=== PATIENT | female | born 1965 | race Caucasian/White ===

== ENCOUNTER → 2017-07-31 | Outpatient (CLI) | payer OTHER ==
[~2017-07-31] MED LIST: ATV5 PO; CZR50 PO
[2017-07-31 18:38] LABS: ALT/SGPT 21 U/L (12-78); AST/SGOT 14 U/L (15-37); BLOOD UREA NITROGEN 12 mg/dl (7-18); BUN/CREATININE RATIO 15.1 (10-20); CALCIUM 9.1 mg/dl (8.5-10.1); CARBON DIOXIDE 25 mmol/L (21-32); CHLORIDE 109 mmol/L (98-107); CREATININE 0.77 mg/dl (0.60-1.20); GLUCOSE 83 mg/dl (70-99); POTASSIUM 4.6 mmol/L (3.5-5.1); SODIUM 141 mmol/L (136-145)
[2017-07-31 18:42] LABS: ALKALINE PHOSPHATASE 93 U/L (45-117); CHOLESTEROL 195 mg/dl (0-200); CHOLESTEROL/HDL RATIO 4.8; HDL CHOLESTEROL 41 mg/dl; LDL CHOLESTEROL CALCULATED 75 mg/dl; TRIGLYCERIDES 393 mg/dl (0-150); VERY LOW DENSITY LIPOPROT CALC 79 mg/dl
== END | disposition home or self-care (01) ==
LOC: C.LABSPEC 17:44
PROVIDERS: ATTEND Family Medicine
DX: Z00.00 Encounter for general adult medical examination without abnormal findings (principal)

== ENCOUNTER 2022-11-24 21:29 | Inpatient (IN) ==
[2022-11-24] MEDS ORDERED: ONDANSETRON INJ 2 MG/ML 2 ML VIAL IV STA (21:35)
[2022-11-24 22:18] LABS: Basophils # (auto) 0.05 K/uL (0-0.2); Basophils % (auto) 0.4 %; Eosinophils % (auto) 1.6 %; Hemoglobin 14.6 g/dl (12.0-16.0); Immature Granulocytes # (auto) 0.07 K/uL (0.01-0.20); Immature Granulocytes % (auto) 0.5 %; Lymphocytes # (auto) 1.85 K/uL (1.2-3.4); Lymphocytes % (auto) 14.4 %; Mean Corpuscular Hemoglobin 28.3 pg (25.0-34.0); Mean Corpuscular Hgb Conc 32.4 g/dL (32.0-36.0); Mean Corpuscular Volume 87.2 fL (80.0-100.0); Mean Platelet Volume 10.6 fL (9.4-12.4); Monocytes # (auto) 0.79 K/uL (0.11-0.59); Monocytes % (auto) 6.2 %; Neutrophils # (auto) 9.87 K/uL (1.40-6.50); Neutrophils % (auto) 76.9 %; Platelet Count 311 K/uL (130-400); RDW Coefficient of Variation 15.7 % (11.5-14.5); RDW Standard Deviation 49.4 fL (36.4-46.3); Red Blood Count 5.16 M/uL (4.20-5.40); White Blood Count 12.83 K/ul (4.8-10.8)
[2022-11-24] MEDS ORDERED: SODIUM CHLORIDE 0.9% 1000ML 1,000 ML IV ONE (22:36)
--- NOTE | 2022-11-24 22:41 | Emergency Department Note ---
Impression & Plan SBO (small bowel obstruction), Vomiting, Abdominal pain ED Provider Note NAME: DIANE MELARA AGE: 57 SEX: F : 1965 ARRIVES VIA: Walk-In INFORMANT: Patient, ED PROVIDER(S): Shyam Gutiérrez DO CHIEF COMPLAINT: Vomiting HPI: The patient is a 57-year-old female whose had multiple abdominal surgeries in the past who presented to the emergency department for an evaluation of abdominal pain and vomiting. The patient denies having any black or bloody bowel moods. She is had no fever. She has noticed abdominal distention and pain throughout the entire day. She states that she had a similar episode in the past which turned out to be a bowel obstruction. At that time she had an NG tube placed and was able to be treated medically. ROS: See above HPI for pertinent positives & negatives. A total of 10 systems reviewed and were otherwise negative. PAST MEDICAL HISTORY: See Below PAST SURGICAL HISTORY: See Below FAMILY HISTORY: See Below SOCIAL HISTORY: See Below HOME MEDICATIONS: See Below ALLERGIES: See Below VITALS: See Below PHYSICAL EXAMINATION: GENERAL: The patient is awake and alert. She appears to be somewhat uncomfortable. EYES: The conjunctivae are clear. The pupils are round and reactive. EARS, NOSE, MOUTH AND THROAT: The nose is without any evidence of any deformity. NECK: The neck is nontender and supple. RESPIRATORY: Normal respiratory effort is noted there is no evidence of wheezing rhonchi or rales CARDIOVASCULAR: Regular rate and rhythm noted there no murmurs rubs or gallops normal S1 normal S2. GASTROINTESTINAL: The abdomen is distended. There is diffuse tenderness to palpation but no guarding rigidity. MUSCULOSKELETAL/EXTREMITIES: There is no evidence of gross deformity full range of motion is noted in the hips and shoulders. SKIN: There is no significant pedal edema. NEUROLOGIC: Patient is awake alert and oriented x3. MEDICAL DECISION MAKING: The patient is a 57-year-old female who presented to the emergency department for an evaluation of abdominal pain. The patient noted abdominal pain abdominal distention and vomiting. She has a history of bowel obstruction from previous surgeries in the past. In the past she was able to manage her bowel obstruction with just NG tube and n.p.o. status. The patient was treated with IV fluids and IV pain medication. She was also treated with IV antibiotics. NG tube was ordered. I discussed the patient's laboratory and radiographic studies with her. [facility] agreed to evaluate the patient in the emergency department for further management and disposition. Triage Nursing notes reviewed. Prior medical records reviewed Vital Signs: reviewed and remarkable for elevated blood pressure. Differential diagnosis: Gastroenteritis, food borne illness, infections, appendicitis, diverticulitis, inflammatory bowel disease, obstruction, GI bleed, biliary pathology, volvulus, as well as other pathologies. ER treatment provided: See below Diagnostics interpreted by me: ECG: none Cardiac Monitoring: An order was placed for continuous cardiac monitoring. The monitor shows a rate of 81 bpm with sinus rhythm. Laboratory studies: As stated above and show below. Imaging studies: See below. Radiographic imaging was reviewed by myself Consultation(s): The case is discussed with Dr. Moore who [facility] Past [facility]/Surg History Medical History Bowel obstruction Social History Smoking Status: Never smoker Feels Safe at Home: Yes Allergies Allergies Allergy/AdvReac Type Severity Reaction Status Date / Time aspirin Allergy Intermediate HIVES Verified 11/27/09 02:58 Home Meds Home Medications Medication Instructions Recorded Confirmed Lorazepam (Ativan *) 0.5 mg PO QAM #0 tabs 03/13/12 Losartan Potassium (Cozaar *) 50 mg PO DAILY #0 tabs 03/13/12 Results & Data (ED) Vital Signs Vital Signs - 24 hr 11/24/22 21:32 Temperature 36.2 C L Temperature Source Temporal Artery Scan Pulse Rate 81 Respiratory Rate 18 Respiratory Effort / Characteristics Non-Labored Respiratory Depth Normal Blood Pressure 194/77 H Blood Pressure Mean 116 Pulse Oximetry 96 Oxygen Delivery Method Room Air Sepsis Recent Fever Within 48 Hours No Sepsis New/Unexplained Change in Mental Status No Sepsis Action Taken by Nursing No Action Required Home Medications Current Medication List: was personally reviewed by me Laboratory Data Attestation: I reviewed the patient's lab results. 11/24/22 21:45 11/24/22 21:45 Lab Results 11/24/22 11/24/22 Range/Units 21:45 21:45 WBC 12.83 H (4.8-10.8) K/ul RBC 5.16 (4.20-5.40) M/uL Hgb 14.6 (12.0-16.0) g/dl Hct 45.0 (37.0-47.0) % MCV 87.2 (80.0-100.0) fL MCH 28.3 (25.0-34.0) pg MCHC 32.4 (32.0-36.0) g/dL RDW Std Deviation 49.4 H (36.4-46.3) fL RDW Coeff of Brigitte 15.7 H (11.5-14.5) % Plt Count 311 (130-400) K/uL MPV 10.6 (9.4-12.4) fL Immature Gran % (Auto) 0.5 % Neut % (Auto) 76.9 % Lymph % (Auto) 14.4 % [place] % (Auto) 6.2 % Eos % (Auto) 1.6 % Baso % (Auto) 0.4 % Neut # (Auto) 9.87 H (1.40-6.50) K/uL Lymph # (Auto) 1.85 (1.2-3.4) K/uL [place] # (Auto) 0.79 H (0.11-0.59) K/uL Eos # (Auto) 0.20 (0-0.50) K/uL Baso # (Auto) 0.05 (0-0.2) K/uL Immature Gran # (Auto) 0.07 (0.01-0.20) K/uL Sodium 139 (136-145) mmol/L Potassium 4.4 (3.5-5.1) mmol/L Chloride 105 (98-107) mmol/L Carbon Dioxide 24 (21-32) mmol/L Anion Gap 10 (3-11) BUN 15 (6-23) mg/dl Creatinine 0.98 (0.6-1.2) mg/dl Est Cr Clr Drug Dosing 75.7 ml/min Est GFR ( Amer) 73.7 ml/min Est GFR (Non-Af Amer) 63.6 ml/min BUN/Creatinine Ratio 15.3 (10-20) Glucose 124 H (70-99(Fasting)) mg/dl Calcium 10.5 H (8.5-10.1) mg/dl Total Bilirubin 0.5 (0.2-1.0) mg/dl AST 23 (13-39) U/L ALT 23 (7-52) U/L Alkaline Phosphatase 107 H (34-104) U/L Total Protein 8.3 (6.0-8.3) gm/dl Albumin 4.5 (3.4-5.0) gm/dl Globulin 3.8 (2.5-4.0) gm/dl Albumin/Globulin Ratio 1.2 (0.9-2) Lipase 30 (11-82) U/L Administered Medications Hydromorphone HCl (Hydromorphone Inj 0.5 Mg/0.5 Ml Syr) 0.5 mg IV Q15M PRN PRN Reason: Pain Stop: 12/08/22 22:35 Last Admin: 11/24/22 22:44 Dose: 0.5 mg Documented By: Discontinued Medications Sodium Chloride (Nss 1000ml) 1,000 mls @ 999 mls/hr IV .Q1H1M ONE Stop: 11/24/22 23:36 Last Admin: 11/24/22 23:14 Dose: 999 mls/hr Documented By: Ondansetron HCl (Ondansetron Inj 2 Mg/Ml 2 Ml Vial) 4 mg IV NOW STA Stop: 11/24/22 21:36 Last Admin: 11/24/22 22:32 Dose: 4 mg Documented By: Imaging Data Radiologist's Impression: Patient: DIANE MELARA (Female) : 63 Status: ER Date: 11/24/22 23:01 Room #: History: vomitng Slices: [id number] Priors: Tech: Riki Cordero @ [phone] Exams: CT ABDOMEN & PELVIS Without Contrast Contrast: Accession Numbers: [id number] Referring Physician: SHYAM GUTIÉRREZ Preliminary Findings Only See Final Report For Complete Findings CT ABDOMEN & PELVIS Without Contrast: Small bowel obstruction with dilated loops of small bowel in the right lower quadrant with formed feces sign and transition zone best seen on best seen on sagittal series 300 image 16. Fatty infiltration of the liver. Radiologist: Thanh Pennington M.D. Study ready at 23:02 and initial results transmitted at 23:08 Discharge Plan Visit Data Chief Complaint: GI Assessment Stated Complaint: PAIN LOWER ABDOMEN,FEELS LIKE BOWEL OBSTRUCTION ED Provider: Shyam Gutiérrez Discharge Problem: SBO (small bowel obstruction), Vomiting, Abdominal pain Patient Disposition: Being Evaluated by Hospitalist Forms Stand Alone Forms: [facility] Prescriptions Prescriptions: No Action Lorazepam (Ativan *) 0.5 MG tablet 0.5 mg PO QAM Qty: 0 Losartan Potassium (Cozaar *) 50 MG tablet 50 mg PO DAILY Qty: 0 Referrals Referrals: Lv Cano, DO [Primary Care Provider] - : Vomiting Qualifiers: Vomiting type: unspecified Nausea presence: with nausea Qualified Code(s): R11.2 - Nausea with vomiting, unspecified Abdominal pain Qualifiers: Abdominal location: generalized Qualified Code(s): R10.84 - Generalized abdominal pain
[2022-11-24] MEDS: HYDROmorphone INJ 0.5 MG/0.5 ML SYR IV PRN (22:44)
[2022-11-24] MEDS ORDERED: PIPERACILLIN/TAZOBACTAM 4.5 GM/120 ML BAG IV ONE (23:27)
[2022-11-24 23:39] LABS: Albumin Globulin Ratio 1.2 (0.9-2); Albumin Level 4.5 gm/dl (3.4-5.0); BUN Creatinine Ratio 15.3 (10-20); Bilirubin,Total 0.5 mg/dl (0.2-1.0); Calcium 10.5 mg/dl (8.5-10.1); Creatinine Clr Calc Pharmacy 75.7 ml/min; Est GFR (African American) 73.7 ml/min; Est GFR (Non-African American) 63.6 ml/min; Globulin 3.8 gm/dl (2.5-4.0); Potassium 4.4 mmol/L (3.5-5.1); Total Protein 8.3 gm/dl (6.0-8.3)
[2022-11-25] MEDS: HYDROmorphone INJ 0.5 MG/0.5 ML SYR IV PRN (00:34)
[2022-11-25] MEDS ORDERED: PROMETHAZINE HCL 12.5 MG in SODIUM CHLORIDE 0.9% 50 ML IV STA (01:59)
[2022-11-25] MEDS ORDERED: PROMETHAZINE 12.5 MG/50.5 ML BAG IV STA (02:04)
[2022-11-25] MEDS ORDERED: HYDROmorphone INJ 0.5 MG/0.5 ML SYR IV PRN (02:54)
[2022-11-25] MEDS ORDERED: hydrALAZINE HCL 20 MG/ML VIAL IV PRN (02:54)
[2022-11-25] MEDS ORDERED: ONDANSETRON INJ 2 MG/ML 2 ML VIAL IV PRN (02:54)
[2022-11-25] MEDS: D5W AND 1/2NSS 1,000 ML IV SCH ×3 (03:26→19:47)
--- NOTE | 2022-11-25 05:50 | Surgery Consultation ---
Date of Consultation November 25, 2022 Assessment & Plan (1) SBO (small bowel obstruction): pt is a 57 year-old female who was admitted to hospital for SBO, IMP: SBO, Plan, no emergent surgery indication now, conservative treatment now, NPO, IV fluid, antibiotic, NG tube, control pain, repeat labs and KUB tomorrow morning, will F/U, pt agreed with the plan, I answered all questions, History of Present Illness Reason for Consultation: SBO Requesting Physician: Rafa Moore MD Attending Physician: Alden Wong MD History of Present Illness CHIEF COMPLAINT: Vomiting HPI: The patient is a 57-year-old female whose had multiple abdominal surgeries in the past who presented to the emergency department for an evaluation of abdominal pain and vomiting. The patient denies having any black or bloody bowel moods. She is had no fever. She has noticed abdominal distention and pain throughout the entire day. She states that she had a similar episode in the past which turned out to be a bowel obstruction. At that time she had an NG tube placed and was able to be treated medically. I ( Era Walter MD ) was asked for consult SBO, I reviewed pt's H/P, labs and Ct scan with pt, pt feels better, no significant abdominal pain now, NG tube in, pt said she had SBO 5 months ago, pt had conservatie treatment for 3-4 days, then the SBO resolved, ROS: See above HPI for pertinent positives & negatives. A total of 10 systems reviewed and were otherwise negative. Allergies Allergy/AdvReac Type Severity Reaction Status Date / Time aspirin Allergy Intermediate HIVES Verified 11/27/09 02:58 dicyclomine [From Bentyl] Allergy Unknown Verified 11/25/22 05:18 Home Medications Medication Instructions Recorded Confirmed Type atorvastatin 20 mg tablet 20 mg PO DAILY 11/25/22 11/25/22 History citalopram 20 mg tablet 30 mg PO DAILY 11/25/22 11/25/22 History estradiol 0.01% (0.1 mg/gram) 1 applic vaginal .EVERY OTHER NIGHT 11/25/22 11/25/22 History vaginal cream lorazepam 0.5 mg tablet 0.5 mg PO TID PRN Anxiety 11/25/22 11/25/22 History losartan 100 mg tablet 50 mg PO DAILY 11/25/22 11/25/22 History prochlorperazine maleate 5 mg 5 mg PO Q6 PRN Nausea 11/25/22 11/25/22 History tablet Patient History Medical History Bowel obstruction Social History Smoking Status: Never smoker Hx Alcohol Use: No Hx Substance Use: No Preferred Language: Italian Communication Ability: Effective Primer Assembler Required: No Beliefs That Will Affect Care: None Current Living Situation: Spouse Feels Safe at Home: Yes Safety Concerns: Feels Safe At This Time Assistive Devices: Glasses Review of Systems Constitutional: obesity, no distress, Eyes: as per Subjective / HPI Respiratory: as per Subjective / HPI Cardiovascular: as per Subjective / HPI Gastrointestinal: , abdominal hernia repair with mesh Genitourinary: as per Subjective / HPI Musculoskeletal: as per Subjective / HPI Neurologic: as per Subjective / HPI Psychiatric: as per Subjective / HPI Endocrine: as per Subjective / HPI Hematologic / Lymphatic: as per Subjective / HPI Physical Exam Constitutional: WD/WN, vitals as above no distress Eyes: PERRL, conjunctivae normal, anicteric sclerae Neck: trachea midline, no thyromegaly Respiratory: normal respiratory effort, lungs clear to auscultation Cardiovascular: RRR, no murmur, no edema Gastrointestinal (Abdomen): soft, lower middle line scar, mild tenderness at periumbilical area, no rebound pain, no distend, BS +, Musculoskeletal: no cyanosis or clubbing, extremities motor strength 5/5 Neurologic: patellar DTR's 2+ bilat, sensation intact Psychiatric: A+Ox3, euthymic affect Results & Data ([facility]) Vital Signs (Past 12 Hours) Vital Signs Temp Pulse Pulse Resp BP BP Pulse Ox 11/25/22 03:00 11/25/22 03:00 37 C 86 20 166/98 H 94 11/25/22 02:36 11/25/22 01:30 78 18 170/79 H 92 11/24/22 21:32 36.2 C L 81 18 194/77 H 96 O2 Del Method 11/25/22 03:00 Room Air 11/25/22 03:00 Room Air 11/25/22 02:36 Room Air 11/25/22 01:30 11/24/22 21:32 Room Air Laboratory Results Abnormal lab results 11/24/22 11/24/22 Range/Units 21:45 21:45 WBC 12.83 H (4.8-10.8) K/ul RDW Std Deviation 49.4 H (36.4-46.3) fL RDW Coeff of Brigitte 15.7 H (11.5-14.5) % Neut # (Auto) 9.87 H (1.40-6.50) K/uL [place] # (Auto) 0.79 H (0.11-0.59) K/uL Glucose 124 H (70-99(Fasting)) mg/dl Calcium 10.5 H (8.5-10.1) mg/dl Alkaline Phosphatase 107 H (34-104) U/L Diagnostic Findings CT scan - SBO,
--- NOTE | 2022-11-25 06:02 | History and Physical Report ---
DATE OF ADMISSION: 11/25/2022 CHIEF COMPLAINT: Abdominal pain. HISTORY OF PRESENT ILLNESS: A 57-year-old female with past medical history significant for hypertension, morbid obesity, lichen sclerosus, history of incisional hernia, presents with abdominal pain. The patient started abdominal pain in the morning, but in the evening it got worse with nausea, no vomiting. She had small bowel movement today. It was normal. Normal bladder movements. No fever, no chills, no chest pain. When the pain is severe, she is getting short of breath. No headache, no blurred visions, no earache, no runny nose, no sore throat, no difficulty swallowing. Currently, resting comfortably and hemodynamically stable. The patient has bowel obstruction in last May. This is second episode. The patient says she has multiple abdominal surgeries. ALLERGIES: ASPIRIN, BENTYL. PAST MEDICAL HISTORY: As mentioned above. PAST SURGICAL HISTORY: x2, colonoscopy, EGD, laparoscopic repair of inguinal hernia, total abdominal hysterectomy. MEDICATIONS: The patient is on atorvastatin 20 mg p.o. daily, citalopram 30 mg p.o. daily, estradiol apply vaginally every other night, lorazepam 0.5 mg p.o. t.i.d. p.r.n., losartan 50 mg p.o. daily, prochlorperazine 5 mg p.o. q. 6 hours p.r.n. FAMILY HISTORY: Significant for brother had cancer. Father had heart disorder, hypertension. Mother had heart disorder. SOCIAL HISTORY: , no smoking. Alcohol occasional. No drug use. REVIEW OF SYSTEMS: As per HPI. Rest of the review of systems is negative. PHYSICAL EXAMINATION: GENERAL: The patient is morbidly obese, not in acute distress. VITAL SIGNS: Temperature 36.2, pulse 81, respiratory rate 18, blood pressure 194/77, oxygen 96% on room air. HEENT: Pupils equal, round and reactive to light. Oral mucosa moist. NECK: No JVD or neck masses. CARDIOVASCULAR: S1 and S2 heard. Regular rate and rhythm. No murmur, no gallop. RESPIRATORY SYSTEM: Normal AP diameter. No accessory muscle use. No wheezing, crackles. ABDOMEN: Soft, bowel sounds absent. No distention. Diffuse mild tenderness. Very mild guarding. No rigidity. CENTRAL NERVOUS SYSTEM: Cranial nerves II-XII grossly intact, nonfocal. EXTREMITIES: No edema, no erythema. LABORATORY DATA: WBC 12.8, hemoglobin 14.6, hematocrit 45, platelets 311. Sodium 139, potassium 4.4, chloride 105, bicarbonate 24, BUN 15, creatinine 0.9, serum glucose 124, calcium 10.5, total bilirubin 0.5, AST 23, ALT 23, alkaline phosphatase 107. Lipase 30. SARS-CoV-2 rapid test negative. IMAGING DATA: CT of abdomen and pelvis preliminary report showed small bowel obstruction. ASSESSMENT AND PLAN: This is a 57-year-old female presents with small bowel obstruction. 1. Abdominal pain, small bowel obstruction. History of abdominal obstruction in the past, history of multiple abdominal surgeries. We will treat conservatively with n.p.o., NG tube, IV fluids, IV antiemetics and IV pain medication p.r.n. and consult GI surgery in the a.m. 2. History of hypertension: Currently n.p.o. We will restart losartan as soon as possible. Currently IV hydralazine p.r.n. 3. History of hyperlipidemia, hold statin now. 4. History of depression. We will hold citalopram now. 5. Deep venous thrombosis prophylaxis: Sequential compression devices for now. DISPOSITION: Closely monitor in the medical floor. PT/OT prior to discharge. Social service to help with discharge planning. Level 1 full code. Job ID: [id number] MTDD
[2022-11-25] MEDS: ceFAZolin 1000MG 1,000 MG/7.5 ML SYR IV SCH ×3 (07:01→22:09)
[2022-11-25 07:33] LABS: Basophils # (auto) 0.02 K/uL (0-0.2); Basophils % (auto) 0.1 %; Eosinophils # (auto) 0.03 K/uL (0-0.50); Eosinophils % (auto) 0.2 %; Hematocrit (blood only) 43.8 % (37.0-47.0); Immature Granulocytes # (auto) 0.05 K/uL (0.01-0.20); Immature Granulocytes % (auto) 0.4 %; Lymphocytes # (auto) 0.65 K/uL (1.2-3.4); Lymphocytes % (auto) 4.6 %; Mean Corpuscular Hemoglobin 28.1 pg (25.0-34.0); Mean Platelet Volume 10.2 fL (9.4-12.4); Monocytes # (auto) 1.04 K/uL (0.11-0.59); Monocytes % (auto) 7.3 %; Neutrophils # (auto) 12.44 K/uL (1.40-6.50); Neutrophils % (auto) 87.4 %; Platelet Count 283 K/uL (130-400); RDW Coefficient of Variation 15.7 % (11.5-14.5); RDW Standard Deviation 50.4 fL (36.4-46.3); Red Blood Count 4.98 M/uL (4.20-5.40); White Blood Count 14.23 K/ul (4.8-10.8)
--- NOTE | 2022-11-25 08:01 | XRay Report ---
XR chest 1V portable HISTORY: NG tube placement COMPARISON: None. FINDINGS: The nasogastric tube is curled within the expected location of the mid to distal stomach. M ildly dilated gas-filled loops of small bowel are partially visualized within the right lower quadran t consistent with a small bowel obstruction. IMPRESSION: 1. The nasogastric tube is curled within the expected location of the mid to distal stomach. 2. Persistent small bowel obstruction pattern. ACT 112: Negative or not required by law. Electronically signed by: Shan Kelly M.D. 11/25/2022 7:59 AM
[2022-11-25 08:10] LABS: Appearance Urine Clear (Clear); Bacteria Urine Automated Negative (Negative); Bilirubin Urine Negative (Negative); Blood Urine Negative (Negative); Color Urine Yellow; Epithelial Cell Urine Auto >30 /lpf (0-5); Glucose Urine UA Negative (Negative); Ketones Urine Negative (Negative); Leukocyte Esterase Urine Trace (Negative); Nitrite Urine Negative (Negative); Protein Urine Negative (Negative); RBC Urine Automated 0-4 /hpf (0-4); Specific Gravity Urine 1.025 (1.000-1.030); Urobilinogen Urine Negative (Negative)
[2022-11-25 08:44] LABS: BUN Creatinine Ratio 17.1 (10-20); Calcium 9.4 mg/dl (8.5-10.1); Creatinine Clr Calc Pharmacy 91.1 ml/min; Est GFR (African American) 91.4 ml/min; Est GFR (Non-African American) 78.9 ml/min; Magnesium 2.1 mg/dl (1.7-2.4); Potassium 4.5 mmol/L (3.5-5.1)
--- NOTE | 2022-11-25 08:45 | CT Scan Report ---
CT OF THE ABDOMEN AND PELVIS WITHOUT CONTRAST CLINICAL HISTORY: Vomiting. COMPARISON STUDY: Abdominal ultrasound January 17, 2014. TECHNIQUE: Axial images of the abdomen and pelvis were obtained without IV contrast. Images were revi ewed in the axial, sagittal, and coronal planes. Automated exposure control was utilized for the bess dy. A dose lowering technique was utilized adhering to the principles of ALARA. FINDINGS: Lung bases are unremarkable. No pneumatosis, free air or portal venous gas is present. Eval uation of the abdomen and pelvis is suboptimal on this unenhanced exam. There is hepatic steatosis. T he spleen, adrenal glands, kidneys and pancreas are unremarkable. There is no biliary or pancreatic d uctal dilatation. There is no hydronephrosis. Multiple loops of mildly dilated fluid-filled distal il eum are noted. Transition point with small bowel feces sign is noted. The transition point is noted o n axial image 251 of 461. The terminal ileum is decompressed. The appendix is partially obscured but likely normal in shown on axial image 215 of 461. The etiology for the small bowel obstruction is not clear on this exam. There is a small amount of associated ascites and mild mesenteric infiltration. Sigmoid diverticulosis is present. There is no evidence for acute diverticulitis. There is no lymphad enopathy. IMPRESSION: 1. Findings consistent with a moderate grade small bowel obstruction within the distal ileum, as desc ribed above. The etiology for the obstruction is not clear on this exam. Small amount of associated a scites and mesenteric infiltration. Appendix partially obscured but likely normal. 2. Hepatic steatosis. 3. Sigmoid diverticulosis. No evidence for acute diverticulitis. ACT 112: Negative or not required by law. Electronically signed by: Enio Marcelino M.D. 11/25/2022 8:44 AM
--- NOTE | 2022-11-25 12:31 | Surgery Progress Note ---
Date of Service November 25, 2022 Assessment & Plan (1) SBO (small bowel obstruction): Plan: History of multiple abdominal surgeries history of SBO in may treated conservatively Passing flatus pain better, no n,v 100 cc NGT output Plan: Continue conseravative management NPO for bowel rest, NGT to LIS, pain management as needed encourage ambulation [facility] covering this weekend Admission and Anticipated Discharge Date Admission Date: November 25, 2022 Subjective feeling better than prior to presentation, abdominal pain still present but not as severe passed small amount of gas this morning no n/v since admission does not feel as bloated Physical Exam Constitutional: WD/WN, vitals as above + morbidly obese, cooperative and comfortable; no acute distress and not ill appearing Respiratory: normal respiratory effort; no respiratory distress and no labored breathing Gastrointestinal (Abdomen): Inspection/Auscultation: abdomen normal to inspection and + hypoactive bowel sounds; abdomen not distended and + abnormal bowel sounds Percussion/Palpation: + abdomen tender (LUQ) and abdomen soft; no guarding and abdomen not rigid NGT with clear/mucous output Skin: no rashes, warm and dry Psychiatric: A+Ox3, euthymic affect Results & Data ([facility]) Vital Signs (Past 12 Hours) Vital Signs Temp Pulse Resp BP Pulse Ox O2 Del Method 11/25/22 08:00 37.0 C 110 H 16 124/76 94 Room Air 11/25/22 03:00 Room Air 11/25/22 03:00 37 C 86 20 166/98 H 94 Room Air 11/25/22 02:36 Room Air 11/25/22 01:30 78 18 170/79 H 92
[2022-11-25] MEDS ORDERED: ACETAMINOPHEN 1,000 MG/100 ML VIAL IV PRN (13:01)
--- NOTE | 2022-11-25 13:03 | Hospitalist Progress Note ---
Date of Service November 25, 2022 Assessment & Plan (1) SBO (small bowel obstruction): Plan: History of multiple abdominal surgeries in the past. Presented with nausea vomiting. Surgery on board Conservative care with NG tube, IV fluids. IV cefazolin added by surgery. IV Tylenol as needed along with IV Dilaudid. (2) Hypertension: Plan: Home losartan on hold; Monitor for now (3) Hyperlipidemia: Plan: Lipitor on hold while NG tube is in place. Plan Full code DVT SCDs Admission and Anticipated Discharge Date Admission Date: November 25, 2022 Subjective Patient seen and examined at bedside. She is comfortably sitting on the bed; not in any distress. NG tube in place; no nausea or vomiting. Review of Systems Review of Systems: All systems reviewed & are unremarkable except as noted in Subjective Physical Exam Physical Exam: Constitutional: WD/WN, vitals as above, NAD, sitting up in bed, pleasant, conversing easily Respiratory: normal respiratory effort, lungs clear to auscultation, no wheeze, rales, rhonchi. Normal insp/exp effort, no accessory muscle use Cardiovascular: RRR, no murmur, no edema Vessels: no JVD or carotid bruit Chest: normal inspection of chest Abdomen: Soft, slightly distended. No tenderness appreciated. Musculoskeletal: no cyanosis or clubbing, extremities motor strength 5/5 Skin: no rashes, warm and dry normal turgor Neurologic: PERRL, EOMI, accommodation nl, no face palsy, no dysarthria CN's II- XI intact bilaterally and moves all extremities Psychiatric: A+Ox3, euthymic affect Lymphatic: no cervical or axillary lymphadenopathy : deferred Results & Data Results & Data ([facility]) Vital Signs (Past 12 Hours) Vital Signs Temp Pulse Resp BP Pulse Ox O2 Del Method 11/25/22 08:00 37.0 C 110 H 16 124/76 94 Room Air 11/25/22 03:00 Room Air 11/25/22 03:00 37 C 86 20 166/98 H 94 Room Air 11/25/22 02:36 Room Air 11/25/22 01:30 78 18 170/79 H 92 Laboratory Results Laboratory Results WBC 14.23 K/ul (4.8-10.8) H 11/25/22 07:03 RBC 4.98 M/uL (4.20-5.40) 11/25/22 07:03 Hgb 14.0 g/dl (12.0-16.0) 11/25/22 07:03 Hct 43.8 % (37.0-47.0) 11/25/22 07:03 MCV 88.0 fL (80.0-100.0) 11/25/22 07:03 MCH 28.1 pg (25.0-34.0) 11/25/22 07:03 MCHC 32.0 g/dL (32.0-36.0) 11/25/22 07:03 RDW Std Deviation 50.4 fL (36.4-46.3) H 11/25/22 07:03 RDW Coeff of Brigitte 15.7 % (11.5-14.5) H 11/25/22 07:03 Plt Count 283 K/uL (130-400) 11/25/22 07:03 MPV 10.2 fL (9.4-12.4) 11/25/22 07:03 Immature Gran % (Auto) 0.4 % 11/25/22 07:03 Neut % (Auto) 87.4 % 11/25/22 07:03 Lymph % (Auto) 4.6 % 11/25/22 07:03 [place] % (Auto) 7.3 % 11/25/22 07:03 Eos % (Auto) 0.2 % 11/25/22 07:03 Baso % (Auto) 0.1 % 11/25/22 07:03 Neut # (Auto) 12.44 K/uL (1.40-6.50) H 11/25/22 07:03 Lymph # (Auto) 0.65 K/uL (1.2-3.4) L 11/25/22 07:03 [place] # (Auto) 1.04 K/uL (0.11-0.59) H 11/25/22 07:03 Eos # (Auto) 0.03 K/uL (0-0.50) 11/25/22 07:03 Baso # (Auto) 0.02 K/uL (0-0.2) 11/25/22 07:03 Immature Gran # (Auto) 0.05 K/uL (0.01-0.20) 11/25/22 07:03 Sodium 139 mmol/L (136-145) 11/25/22 07:03 Potassium 4.5 mmol/L (3.5-5.1) 11/25/22 07:03 Chloride 108 mmol/L (98-107) H 11/25/22 07:03 Carbon Dioxide 21 mmol/L (21-32) 11/25/22 07:03 Anion Gap 10 (3-11) 11/25/22 07:03 BUN 14 mg/dl (6-23) 11/25/22 07:03 Creatinine 0.82 mg/dl (0.6-1.2) 11/25/22 07:03 Est Cr Clr Drug Dosing 91.1 ml/min 11/25/22 07:03 Est GFR ( Amer) 91.4 ml/min 11/25/22 07:03 Est GFR (Non-Af Amer) 78.9 ml/min 11/25/22 07:03 BUN/Creatinine Ratio 17.1 (10-20) 11/25/22 07:03 Glucose 136 mg/dl (70-99(Fasting)) H 11/25/22 07:03 Calcium 9.4 mg/dl (8.5-10.1) 11/25/22 07:03 Magnesium 2.1 mg/dl (1.7-2.4) 11/25/22 07:03 Total Bilirubin 0.5 mg/dl (0.2-1.0) 11/24/22 21:45 AST 23 U/L (13-39) 11/24/22 21:45 ALT 23 U/L (7-52) 11/24/22 21:45 Alkaline Phosphatase 107 U/L (34-104) H 11/24/22 21:45 Total Protein 8.3 gm/dl (6.0-8.3) 11/24/22 21:45 Albumin 4.5 gm/dl (3.4-5.0) 11/24/22 21:45 Globulin 3.8 gm/dl (2.5-4.0) 11/24/22 21:45 Albumin/Globulin Ratio 1.2 (0.9-2) 11/24/22 21:45 Lipase 30 U/L (11-82) 11/24/22 21:45 Urine Color Yellow 11/25/22 07:16 Urine Appearance Clear (Clear) 11/25/22 07:16 Urine pH 5.0 (4.5-7.5) 11/25/22 07:16 Ur Specific [place] 1.025 (1.000-1.030) 11/25/22 07:16 Urine Protein Negative (Negative) 11/25/22 07:16 Urine Glucose (UA) Negative (Negative) 11/25/22 07:16 Urine Ketones Negative (Negative) 11/25/22 07:16 Urine Blood Negative (Negative) 11/25/22 07:16 Urine Nitrite Negative (Negative) 11/25/22 07:16 Urine Bilirubin Negative (Negative) 11/25/22 07:16 Urine Urobilinogen Negative (Negative) 11/25/22 07:16 Ur Leukocyte Esterase Trace (Negative) H 11/25/22 07:16 Urine WBC (Auto) 5-10 /hpf (0-5) H 11/25/22 07:16 Urine RBC (Auto) 0-4 /hpf (0-4) 11/25/22 07:16 U Hyaline Cast (Auto) 1-5 /lpf (0-5) 11/25/22 07:16 U Epithel Cells (Auto) >30 /lpf (0-5) H 11/25/22 07:16 Urine Bacteria (Auto) Negative (Negative) 11/25/22 07:16 SARS-CoV-2, RNA, NAAT NEGATIVE (NEGATIVE) 11/24/22 22:47 Impressions Abdomen/Pelvis CT 11/24/22 22:32 CT OF THE ABDOMEN AND PELVIS WITHOUT CONTRAST CLINICAL HISTORY: Vomiting. COMPARISON STUDY: Abdominal ultrasound January 17, 2014. TECHNIQUE: Axial images of the abdomen and pelvis were obtained without IV contrast. Images were reviewed in the axial, sagittal, and coronal planes. Automated exposure control was utilized for the study. A dose lowering technique was utilized adhering to the principles of ALARA. FINDINGS: Lung bases are unremarkable. No pneumatosis, free air or portal venous gas is present. Evaluation of the abdomen and pelvis is suboptimal on this unenhanced exam. There is hepatic steatosis. The spleen, adrenal glands, kidneys and pancreas are unremarkable. There is no biliary or pancreatic ductal dilatation. There is no hydronephrosis. Multiple loops of mildly dilated fluid- filled distal ileum are noted. Transition point with small bowel feces sign is noted. The transition point is noted on axial image 251 of 461. The terminal ileum is decompressed. The appendix is partially obscured but likely normal in shown on axial image 215 of 461. The etiology for the small bowel obstruction is not clear on this exam. There is a small amount of associated ascites and mild mesenteric infiltration. Sigmoid diverticulosis is present. There is no evidence for acute diverticulitis. There is no lymphadenopathy. IMPRESSION: 1. Findings consistent with a moderate grade small bowel obstruction within the distal ileum, as described above. The etiology for the obstruction is not clear on this exam. Small amount of associated ascites and mesenteric infiltration. Appendix partially obscured but likely normal. 2. Hepatic steatosis. 3. Sigmoid diverticulosis. No evidence for acute diverticulitis. ACT 112: Negative or not required by law. Electronically signed by: Enio Marcelino M.D. 11/25/2022 8:44 AM Chest X-Ray 11/25/22 00:47 XR chest 1V portable HISTORY: NG tube placement COMPARISON: None. FINDINGS: The nasogastric tube is curled within the expected location of the mid to distal stomach. Mildly dilated gas-filled loops of small bowel are partially visualized within the right lower quadrant consistent with a small bowel obstruction. IMPRESSION: 1. The nasogastric tube is curled within the expected location of the mid to distal stomach. 2. Persistent small bowel obstruction pattern. ACT 112: Negative or not required by law. Electronically signed by: Shan Kelly M.D. 11/25/2022 7:59 AM
--- NOTE | 2022-11-25 13:25 | XRay Report ---
KUB CLINICAL HISTORY: Small bowel obstruction. COMPARISON STUDY: CT of the abdomen and pelvis November 24, 2022. FINDINGS: Tip of nasogastric tube is within the body of the stomach. Multiple loops of mildly dilated ileum are noted. The findings represent a persistent small bowel obstruction. Small bowel dilatation is similar to prior exam. IMPRESSION: Persistent small bowel obstruction. ACT 112: Negative or not required by law. Electronically signed by: Enio Marcelino M.D. 11/25/2022 1:24 PM
--- NOTE | 2022-11-25 14:56 | XRay Report ---
XR chest 1V portable HISTORY: 57 years-old Female position of NG tube status post placement of an enteric tube COMPARISON: KUB of same day TECHNIQUE: AP view of the chest FINDINGS: Cardiac silhouette is enlarged. Enteric tube is redemonstrated with the distal tip in the expected lo cation of the mid stomach, similar to prior. Mild subsegmental bibasilar atelectasis. Persistent smal l bowel obstruction. Bones appear grossly intact. IMPRESSION: Distal tip of enteric tube projects over the mid stomach. ACT 112: Negative or not required by law. The above report was generated using voice recognition software. It may contain grammatical, syntax o r spelling errors. Electronically signed by: Omar Jaime M.D. 11/25/2022 2:55 PM
[2022-11-26] MEDS: D5W AND 1/2NSS 1,000 ML IV SCH ×2 (03:17→11:49)
[2022-11-26] MEDS: ceFAZolin 1000MG 1,000 MG/7.5 ML SYR IV SCH ×2 (05:35→15:25)
--- NOTE | 2022-11-26 06:09 | Surgery Progress Note ---
Date of Service November 26, 2022 Assessment & Plan (1) SBO (small bowel obstruction): Plan: Patient has been admitted on the hospitalist service. We recommend proceeding as follows We will consider advancing diet to clear liquids later this morning. Continue IV fluid until certain oral intake is adequate Encourage ambulation Check a.m. labs when available Admission and Anticipated Discharge Date Admission Date: November 25, 2022 Supervising Physician Co-Signing Physician Notes I personally saw and evaluated the patient with Frantz Henson PA-C and agree with the assessment and plan. 57-year-old female with small bowel obstruction, improving She is doing well without any nausea since her NG tube came out yesterday and tolerating sips and chips We will give her clear liquids today, instructed to go slow with these We will continue to follow Subjective Patient is resting comfortably in bed. She notes abdominal pain that was present at time of admission is markedly improved. She does report having flatus and a small bowel movement last evening. She denies any nausea or vomiting. She also notes that her NG tube became dislodged last evening and has not been replaced. Physical Exam Gastrointestinal (Abdomen): Abdomen is soft and nonrigid. There is no distention noted. Bowel sounds are hypoactive. There is minimal pain noted with palpation. Results & Data ([facility]) Vital Signs (Past 12 Hours) Vital Signs Temp Pulse Resp BP Pulse Ox O2 Del Method 11/25/22 21:07 36.9 C 89 20 166/76 H 96 Room Air PG Care Time/CCT Total # of Minutes Spent Total Time Spent with Patient: Total time spent is greater than 50% in coordination of care (as documented) at patient's floor/unit and/or counseling patient: Coding Level of Care Code 68416 SUB INP/OBS CARE 25MIN Diagnoses SBO (small bowel obstruction) K56.609
[2022-11-26 06:18] LABS: Basophils # (auto) 0.02 K/uL (0-0.2); Basophils % (auto) 0.3 %; Eosinophils # (auto) 0.26 K/uL (0-0.50); Eosinophils % (auto) 3.3 %; Hematocrit (blood only) 38.4 % (37.0-47.0); Hemoglobin 12.2 g/dl (12.0-16.0); Immature Granulocytes # (auto) 0.03 K/uL (0.01-0.20); Immature Granulocytes % (auto) 0.4 %; Lymphocytes # (auto) 1.71 K/uL (1.2-3.4); Lymphocytes % (auto) 21.8 %; Mean Corpuscular Hemoglobin 28.4 pg (25.0-34.0); Mean Corpuscular Hgb Conc 31.8 g/dL (32.0-36.0); Mean Corpuscular Volume 89.3 fL (80.0-100.0); Mean Platelet Volume 10.2 fL (9.4-12.4); Monocytes # (auto) 0.72 K/uL (0.11-0.59); Monocytes % (auto) 9.2 %; Neutrophils # (auto) 5.12 K/uL (1.40-6.50); Platelet Count 236 K/uL (130-400); RDW Coefficient of Variation 15.9 % (11.5-14.5); RDW Standard Deviation 52.1 fL (36.4-46.3); White Blood Count 7.86 K/ul (4.8-10.8)
[2022-11-26 06:49] LABS: Albumin Globulin Ratio 1.3 (0.9-2); Albumin Level 3.7 gm/dl (3.4-5.0); BUN Creatinine Ratio 14.3 (10-20); Bilirubin,Total 0.6 mg/dl (0.2-1.0); Creatinine Clr Calc Pharmacy 82.1 ml/min; Est GFR (African American) 80.6 ml/min; Est GFR (Non-African American) 69.5 ml/min; Globulin 2.9 gm/dl (2.5-4.0); Potassium 3.8 mmol/L (3.5-5.1); Total Protein 6.6 gm/dl (6.0-8.3)
[2022-11-26] MEDS ORDERED: ACETAMINOPHEN 325 MG TAB PO ONE (08:41)
[2022-11-26] MEDS ORDERED: LORazepam 0.5 MG TAB PO PRN (11:40)
--- NOTE | 2022-11-26 11:40 | Hospitalist Progress Note ---
Date of Service November 26, 2022 Assessment & Plan (1) SBO (small bowel obstruction): Plan: History of multiple abdominal surgeries in the past. Presented with nausea vomiting. Surgery on board NG tube taken out yesterday. Started on clear liquid diet. Advance diet as tolerated. (2) Hypertension: Plan: reume losartan (3) Hyperlipidemia: Plan: resume lipitor Plan Full code DVT SCDs Disposition- from Home. Plan to advance diet as tolerated today. If continues to tolerate diet; possible dc in am. Admission and Anticipated Discharge Date Admission Date: November 25, 2022 Subjective Patient seen and examined at bedside. Reports that her abdominal pain has improved. no longer nauseous or vomiting. Had bowel movement. Review of Systems Review of Systems: All systems reviewed & are unremarkable except as noted in Subjective Physical Exam Physical Exam: Constitutional: WD/WN, vitals as above, NAD, sitting up in bed, pleasant, conversing easily Respiratory: normal respiratory effort, lungs clear to auscultation, no wheeze, rales, rhonchi. Normal insp/exp effort, no accessory muscle use Cardiovascular: RRR, no murmur, no edema Vessels: no JVD or carotid bruit Chest: normal inspection of chest Abdomen: Soft, slightly distended. No tenderness appreciated. Musculoskeletal: no cyanosis or clubbing, extremities motor strength 5/5 Skin: no rashes, warm and dry normal turgor Neurologic: PERRL, EOMI, accommodation nl, no face palsy, no dysarthria CN's II- XI intact bilaterally and moves all extremities Psychiatric: A+Ox3, euthymic affect Lymphatic: no cervical or axillary lymphadenopathy : deferred Results & Data Results & Data ([facility]) Vital Signs (Past 12 Hours) Vital Signs Temp Pulse Resp BP Pulse Ox O2 Del Method 11/26/22 08:00 36.7 C 70 16 147/86 H 97 Room Air Laboratory Results Laboratory Results WBC 7.86 K/ul (4.8-10.8) 11/26/22 05:29 RBC 4.30 M/uL (4.20-5.40) 11/26/22 05:29 Hgb 12.2 g/dl (12.0-16.0) 11/26/22 05:29 Hct 38.4 % (37.0-47.0) 11/26/22 05:29 MCV 89.3 fL (80.0-100.0) 11/26/22 05:29 MCH 28.4 pg (25.0-34.0) 11/26/22 05: MCHC 31.8 g/dL (32.0-36.0) L 11/26/22 05:29 RDW Std Deviation 52.1 fL (36.4-46.3) H 11/26/22 05: RDW Coeff of Brigitte 15.9 % (11.5-14.5) H 11/26/22 05:29 Plt Count 236 K/uL (130-400) 11/26/22 05: MPV 10.2 fL (9.4-12.4) 11/26/22 05:29 Immature Gran % (Auto) 0.4 % 11/26/22 05:29 Neut % (Auto) 65.0 % 11/26/22 05:29 Lymph % (Auto) 21.8 % 11/26/22 05:29 [place] % (Auto) 9.2 % 11/26/22 05:29 Eos % (Auto) 3.3 % 11/26/22 05:29 Baso % (Auto) 0.3 % 11/26/22 05:29 Neut # (Auto) 5.12 K/uL (1.40-6.50) 11/26/22 05:29 Lymph # (Auto) 1.71 K/uL (1.2-3.4) 11/26/22 05:29 [place] # (Auto) 0.72 K/uL (0.11-0.59) H 11/26/22 05:29 Eos # (Auto) 0.26 K/uL (0-0.50) 11/26/22 05:29 Baso # (Auto) 0.02 K/uL (0-0.2) 11/26/22 05:29 Immature Gran # (Auto) 0.03 K/uL (0.01-0.20) 11/26/22 05:29 Sodium 139 mmol/L (136-145) 11/26/22 05:29 Potassium 3.8 mmol/L (3.5-5.1) 11/26/22 05:29 Chloride 107 mmol/L (98-107) 11/26/22 05:29 Carbon Dioxide 28 mmol/L (21-32) 11/26/22 05:29 Anion Gap 4 (3-11) 11/26/22 05:29 BUN 13 mg/dl (6-23) 11/26/22 05:29 Creatinine 0.91 mg/dl (0.6-1.2) 11/26/22 05:29 Est Cr Clr Drug Dosing 82.1 ml/min 11/26/22 05:29 Est GFR ( Amer) 80.6 ml/min 11/26/22 05:29 Est GFR (Non-Af Amer) 69.5 ml/min 11/26/22 05:29 BUN/Creatinine Ratio 14.3 (10-20) 11/26/22 05:29 Glucose 120 mg/dl (70-99(Fasting)) H 11/26/22 05:29 Calcium 9.0 mg/dl (8.5-10.1) 11/26/22 05:29 Magnesium 2.1 mg/dl (1.7-2.4) 11/25/22 07:03 Total Bilirubin 0.6 mg/dl (0.2-1.0) 11/26/22 05:29 AST 14 U/L (13-39) 11/26/22 05:29 ALT 14 U/L (7-52) 11/26/22 05:29 Alkaline Phosphatase 66 U/L (34-104) 11/26/22 05:29 Total Protein 6.6 gm/dl (6.0-8.3) D 11/26/22 05:29 Albumin 3.7 gm/dl (3.4-5.0) 11/26/22 05:29 Globulin 2.9 gm/dl (2.5-4.0) 11/26/22 05:29 Albumin/Globulin Ratio 1.3 (0.9-2) 11/26/22 05:29 Lipase 30 U/L (11-82) 11/24/22 21:45 Urine Color Yellow 11/25/22 07:16 Urine Appearance Clear (Clear) 11/25/22 07:16 Urine pH 5.0 (4.5-7.5) 11/25/22 07:16 Ur Specific [place] 1.025 (1.000-1.030) 11/25/22 07:16 Urine Protein Negative (Negative) 11/25/22 07:16 Urine Glucose (UA) Negative (Negative) 11/25/22 07:16 Urine Ketones Negative (Negative) 11/25/22 07:16 Urine Blood Negative (Negative) 11/25/22 07:16 Urine Nitrite Negative (Negative) 11/25/22 07:16 Urine Bilirubin Negative (Negative) 11/25/22 07:16 Urine Urobilinogen Negative (Negative) 11/25/22 07:16 Ur Leukocyte Esterase Trace (Negative) H 11/25/22 07:16 Urine WBC (Auto) 5-10 /hpf (0-5) H 11/25/22 07:16 Urine RBC (Auto) 0-4 /hpf (0-4) 11/25/22 07:16 U Hyaline Cast (Auto) 1-5 /lpf (0-5) 11/25/22 07:16 U Epithel Cells (Auto) >30 /lpf (0-5) H 11/25/22 07:16 Urine Bacteria (Auto) Negative (Negative) 11/25/22 07:16 SARS-CoV-2, RNA, NAAT NEGATIVE (NEGATIVE) 11/24/22 22:47 Impressions Abdomen/Pelvis CT 11/24/22 22:32 CT OF THE ABDOMEN AND PELVIS WITHOUT CONTRAST CLINICAL HISTORY: Vomiting. COMPARISON STUDY: Abdominal ultrasound January 17, 2014. TECHNIQUE: Axial images of the abdomen and pelvis were obtained without IV contrast. Images were reviewed in the axial, sagittal, and coronal planes. Automated exposure control was utilized for the study. A dose lowering technique was utilized adhering to the principles of ALARA. FINDINGS: Lung bases are unremarkable. No pneumatosis, free air or portal venous gas is present. Evaluation of the abdomen and pelvis is suboptimal on this unenhanced exam. There is hepatic steatosis. The spleen, adrenal glands, kidneys and pancreas are unremarkable. There is no biliary or pancreatic ductal dilatation. There is no hydronephrosis. Multiple loops of mildly dilated fluid- filled distal ileum are noted. Transition point with small bowel feces sign is noted. The transition point is noted on axial image 251 of 461. The terminal ileum is decompressed. The appendix is partially obscured but likely normal in shown on axial image 215 of 461. The etiology for the small bowel obstruction is not clear on this exam. There is a small amount of associated ascites and mild mesenteric infiltration. Sigmoid diverticulosis is present. There is no evidence for acute diverticulitis. There is no lymphadenopathy. IMPRESSION: 1. Findings consistent with a moderate grade small bowel obstruction within the distal ileum, as described above. The etiology for the obstruction is not clear on this exam. Small amount of associated ascites and mesenteric infiltration. Appendix partially obscured but likely normal. 2. Hepatic steatosis. 3. Sigmoid diverticulosis. No evidence for acute diverticulitis. ACT 112: Negative or not required by law. Electronically signed by: Enio Marcelino M.D. 11/25/2022 8:44 AM KUB X-Ray 11/25/22 06:02 KUB CLINICAL HISTORY: Small bowel obstruction. COMPARISON STUDY: CT of the abdomen and pelvis November 24, 2022. FINDINGS: Tip of nasogastric tube is within the body of the stomach. Multiple loops of mildly dilated ileum are noted. The findings represent a persistent small bowel obstruction. Small bowel dilatation is similar to prior exam. IMPRESSION: Persistent small bowel obstruction. ACT 112: Negative or not required by law. Electronically signed by: Enio Marcelino M.D. 11/25/2022 1:24 PM Chest X-Ray 11/25/22 14:28 XR chest 1V portable HISTORY: 57 years-old Female position of NG tube status post placement of an enteric tube COMPARISON: KUB of same day TECHNIQUE: AP view of the chest FINDINGS: Cardiac silhouette is enlarged. Enteric tube is redemonstrated with the distal tip in the expected location of the mid stomach, similar to prior. Mild subsegmental bibasilar atelectasis. Persistent small bowel obstruction. Bones appear grossly intact. IMPRESSION: Distal tip of enteric tube projects over the mid stomach. ACT 112: Negative or not required by law. The above report was generated using voice recognition software. It may contain grammatical, syntax or spelling errors. Electronically signed by: Omar Jaime M.D. 11/25/2022 2:55 PM
[2022-11-26] MEDS: LOSARTAN POTASSIUM 50 MG TAB PO SCH (12:50)
[2022-11-26] MEDS: CITALOPRAM 20 MG TAB PO SCH (12:50)
[2022-11-26] MEDS ORDERED: ACETAMINOPHEN 325 MG TAB PO PRN (13:00)
[2022-11-26] MEDS: ATORVASTATIN 20 MG TAB PO SCH (15:25)
[2022-11-27 05:44] LABS: Basophils # (auto) 0.02 K/uL (0-0.2); Basophils % (auto) 0.2 %; Eosinophils % (auto) 3.7 %; Hematocrit (blood only) 36.9 % (37.0-47.0); Hemoglobin 11.8 g/dl (12.0-16.0); Immature Granulocytes # (auto) 0.03 K/uL (0.01-0.20); Immature Granulocytes % (auto) 0.4 %; Lymphocytes # (auto) 1.74 K/uL (1.2-3.4); Lymphocytes % (auto) 21.5 %; Mean Corpuscular Hemoglobin 28.5 pg (25.0-34.0); Mean Corpuscular Volume 89.1 fL (80.0-100.0); Mean Platelet Volume 9.8 fL (9.4-12.4); Monocytes # (auto) 0.61 K/uL (0.11-0.59); Monocytes % (auto) 7.5 %; Neutrophils # (auto) 5.39 K/uL (1.40-6.50); Neutrophils % (auto) 66.7 %; Platelet Count 224 K/uL (130-400); RDW Coefficient of Variation 15.5 % (11.5-14.5); RDW Standard Deviation 50.8 fL (36.4-46.3); Red Blood Count 4.14 M/uL (4.20-5.40); White Blood Count 8.09 K/ul (4.8-10.8)
--- NOTE | 2022-11-27 05:57 | Surgery Progress Note ---
Date of Service November 27, 2022 Assessment & Plan (1) SBO (small bowel obstruction): Plan: Patient has been admitted on the hospitalist service. We recommend proceeding as follows: Patient is tolerated clear liquids over the past 24 hours. We will likely increase to full liquids later this morning. Continue IV fluid until certain oral intake is adequate Encourage ambulation Likely home once diet able to be advanced further Admission and Anticipated Discharge Date Admission Date: November 25, 2022 Supervising Physician Co-Signing Physician Notes I personally saw and evaluated the patient with Frantz Henson PA-C and agree with the assessment and plan. 57-year-old female with small bowel obstruction, improving She is tolerating clear liquids and has minimal pain at this point still passing flatus We will trial a low fiber diet If she tolerates this and continues to pass flatus and have return of bowel function she can be discharged from a surgical standpoint We will continue to follow Subjective Patient is resting comfortably in bed. She notes that she is moving her bowels and passing flatus. She only notes minimal abdominal pain which is markedly improved from time of admission. Results & Data ([facility]) Vital Signs (Past 12 Hours) Vital Signs Temp Pulse Resp BP Pulse Ox O2 Del Method 11/26/22 21:28 36.4 C L 67 18 129/69 97 Room Air PG Care Time/CCT Total # of Minutes Spent Total Time Spent with Patient: Total time spent is greater than 50% in coordination of care (as documented) at patient's floor/unit and/or counseling patient: Coding Level of Care Code 49400 SUB INP/OBS CARE 25MIN Diagnoses SBO (small bowel obstruction) K56.609
[2022-11-27 06:03] LABS: Albumin Globulin Ratio 1.2 (0.9-2); Albumin Level 3.6 gm/dl (3.4-5.0); BUN Creatinine Ratio 10.4 (10-20); Bilirubin,Total 0.5 mg/dl (0.2-1.0); Calcium 8.9 mg/dl (8.5-10.1); Est GFR (African American) 98.6 ml/min; Est GFR (Non-African American) 85.1 ml/min; Globulin 2.9 gm/dl (2.5-4.0); Potassium 3.7 mmol/L (3.5-5.1); Total Protein 6.5 gm/dl (6.0-8.3)
[2022-11-27] MEDS: ATORVASTATIN 20 MG TAB PO SCH (08:02)
[2022-11-27] MEDS: CITALOPRAM 20 MG TAB PO SCH (08:03)
[2022-11-27] MEDS: LOSARTAN POTASSIUM 50 MG TAB PO SCH (08:04)
[2022-11-27] MEDS ORDERED: MAGNESIUM HYDROXIDE SUSP 30 ML UDC PO ONE (09:19)
--- NOTE | 2022-11-27 13:37 | Discharge Summary ---
Date of Service November 27, 2022 Admission HPI Per Admitting Provider A 57-year-old female with past medical history significant for hypertension, morbid obesity, lichen sclerosus, history of incisional hernia, presents with abdominal pain. The patient started abdominal pain in the morning, but in the evening it got worse with nausea, no vomiting. She had small bowel movement today. It was normal. Normal bladder movements. No fever, no chills, no chest pain. When the pain is severe, she is getting short of breath. No headache, no blurred visions, no earache, no runny nose, no sore throat, no difficulty swallowing. Currently, resting comfortably and hemodynamically stable. The patient has bowel obstruction in last May. This is second episode. The patient says she has multiple abdominal surgeries. Admission Exam Per Admitting Provider GENERAL: The patient is morbidly obese, not in acute distress. VITAL SIGNS: Temperature 36.2, pulse 81, respiratory rate 18, blood pressure 194/77, oxygen 96% on room air. HEENT: Pupils equal, round and reactive to light. Oral mucosa moist. NECK: No JVD or neck masses. CARDIOVASCULAR: S1 and S2 heard. Regular rate and rhythm. No murmur, no gallop. RESPIRATORY SYSTEM: Normal AP diameter. No accessory muscle use. No wheezing, crackles. ABDOMEN: Soft, bowel sounds absent. No distention. Diffuse mild tenderness. Very mild guarding. No rigidity. CENTRAL NERVOUS SYSTEM: Cranial nerves II-XII grossly intact, nonfocal. EXTREMITIES: No edema, no erythema. Principal Diagnosis Small bowel obstruction Discharge Exam Constitutional: WD/WN, vitals as above, NAD, sitting up in bed, pleasant, conversing easily Respiratory: normal respiratory effort, lungs clear to auscultation, no wheeze, rales, rhonchi. Normal insp/exp effort, no accessory muscle use Cardiovascular: RRR, no murmur, no edema Vessels: no JVD or carotid bruit Chest: normal inspection of chest Abdomen: Soft, not distended. No tenderness appreciated. Musculoskeletal: no cyanosis or clubbing, extremities motor strength 5/5 Skin: no rashes, warm and dry normal turgor Neurologic: PERRL, EOMI, accommodation nl, no face palsy, no dysarthria CN's II- XI intact bilaterally and moves all extremities Psychiatric: A+Ox3, euthymic affect Lymphatic: no cervical or axillary lymphadenopathy : deferred Discharge Data Allergies Allergy/AdvReac Type Severity Reaction Status Date / Time aspirin Allergy Intermediate HIVES Verified 11/27/09 02:58 dicyclomine [From Bentyl] Allergy Unknown Verified 11/25/22 05:18 Consultations 11/24/22 23:31 ED Decision to Admit Stat 11/25/22 08:00 Consult General Surgery Routine Ordered Studies 11/24/22 22:32 CT abd pelvis wo con Urgent Hospital Course (1) SBO (small bowel obstruction): (2) Hypertension: (3) Hyperlipidemia: Plan Patient is a 57-year-old female with past medical history of hypertension, hyperlipidemia, depression, history of multiple abdominal surgery presented to the ED with nausea vomiting and abdominal pain. CT abdomen and pelvis showed moderate grade small bowel obstruction within the distal ileum. Patient was evaluated by surgery. Patient was managed conservatively with NG tube suction, pain control and IV fluids. Patient's abdominal pain improved gradually throughout the hospitalization. NG tube was taken out; patient's diet was advanced to low fiber diet. Patient had a bowel movement and was passing gas. Patient was discharged home with instruction to follow-up with her primary care doctor. Total Time Total Time Spent Total Time Spent (In Minutes): 35 Total Time Includes: Examination of the Patient, Discharge Planning, Medication Reconciliation, Communication With Other Providers and Other Discharge Plan Discharge Items Patient Disposition: Home - Self-Care Reason For Visit: ABDOMINAL PAIN Discharge Diagnosis: Small bowel obstruction Activity: Resume your previous activity Non-emergency contact: Primary Care Provider Call non-emergency contact if: you have any medication questions and your symptoms worsen Follow-up/Referrals: Lv Cano, [Primary Care Provider] - Diet: Low Fiber Addtl Attending Provider Instructions: You were admitted to the hospital with a small bowel obstruction. Please continue to follow low fiber diet as instructed in the pamphlet. Please follow-up with your primary care doctor sometime later in the week. Pending Studies at Discharge: No Stand-Alone Forms: My [employer], Smoking Cessation Medications and DC Order Prescriptions: Continued atorvastatin 20 mg tablet 20 mg PO DAILY losartan 100 mg tablet 50 mg PO DAILY lorazepam 0.5 mg tablet 0.5 mg PO TID PRN (Reason: Anxiety) citalopram 20 mg tablet 30 mg PO DAILY Rx Instructions: 1 & 1/2 tablet dose estradiol 0.01 % (0.1 mg/gram) cream 1 applic VAGINAL .EVERY OTHER NIGHT prochlorperazine maleate 5 mg tablet 5 mg PO Q6 PRN (Reason: Nausea) Discharge Orders: Discharge Order (Routine); Ordered 11/27/22 Ordered By: Alden Miller/Other Patient Handouts: Small Bowel Obstruction, Low-Fiber Diet Admission Data Admit Date/Time: 11/25/22 00:54 Attending Provider: Alden Wong Admit Provider: Rafa Moore Primary Care Provider: Lv Cano Other Providers: Rafa Moore ; Rk Chun ; Jeff Palacios ; Sonya Diana ; Lorin Schultz ; Isael Tarango ; Irving Dumont ; No Cuellar ; Emily Almeida ; Tobi Henson Jr ; Era Walter ; Louis Jimenez ; Enid Ceballos Other Interventions: Discharge Summary Assessment (RN) Last Done: 11/27/22 15:51
== END 2022-11-27 16:09 | disposition home or self-care (01) | DRG 389 ==
LOC: ED 21:29 → 3E 11-25 00:54